=== PATIENT | female | born 1970 | race Caucasian/White ===

== ENCOUNTER 2017-12-08 22:10 | Inpatient (IN) | payer OTHER ==
[~2017-12-08] VITALS: Ht 160 cm; Wt 107.2 kg
[~2017-12-08 22:10] MED LIST: CALCIUM 500 +1 EACH PO; CYANOCOBAL1000 MCG/2 IM; FORTAMET500 M1 PO; VITAMIN D-32000 UNI2 PO
[2017-12-09 10:50] VITALS: BP 112/60
[2017-12-09 16:44] VITALS: BP 150/73
[2017-12-09 20:25] VITALS: BP 134/78
[2017-12-10 00:13] VITALS: BP 124/67
[2017-12-10 04:18] VITALS: BP 149/94
[2017-12-10 06:07] LABS: HEMATOCRIT 38.1 % (36.0-46.0); HEMOGLOBIN 12.9 G/DL (11.9-15.5); MCH 28.8 PG (29.0-34.0); MCHC 33.9 G/DL (30.0-36.0); PLATELET COUNT 211 K/uL (156-360); RBC DIS.WIDTH-CV 12.4 % (11.8-14.6); RBC DIS.WIDTH-SD 37.6 % (39-53); RED BLOOD COUNT 4.48 M/uL (3.80-5.20); WHITE BLOOD COUNT 14.3 K/uL (4.1-10.2)
[2017-12-10 06:31] LABS: CHLORIDE 101 MEQ/L (99-109); CREATININE 0.6 MG/DL (0.6-1.3); GFR ESTIMATE (CALCULATED) > 59 mL/min/; GLUCOSE 168 mg/dL (70-99); MAGNESIUM 1.5 mg/dl (1.3-2.7); PHOSPHORUS 3.4 mg/dL (2.5-4.9); POTASSIUM 4.5 MEQ/L (3.7-5.4); SODIUM 135 MEQ/L (136-147); UREA NITROGEN (BUN) 8 mg/dL (9-23)
[2017-12-10 07:50] VITALS: BP 118/63
== END 2017-12-10 10:50 | disposition home or self-care (01) | DRG 621 ==
LOC: EDBD → ENRESERV 22:10 → 2SOUTH 12-09 09:58 → ENRESERV 12-09 15:44 → 2EASTP 12-09 16:28
PROVIDERS: Surgery
PROC: 0DB64Z3 Excision of Stomach, Percutaneous Endoscopic Approach, Vertical (ICD-10-PCS; principal; 2017-12-09)
DX: E66.01 Morbid (severe) obesity due to excess calories (principal); E78.5 Hyperlipidemia, unspecified; E11.9 Type 2 diabetes mellitus without complications; Z87.891 Personal history of nicotine dependence; Z68.41 Body mass index [BMI] 40.0-44.9, adult; I25.2 Old myocardial infarction; Z79.4 Long term (current) use of insulin
CPT/HCPCS: 80048; 82948; 83735; 84100; 85027; C9113; J0131; J0330; J1100; J1170; J1580; J1644; J1650; J1815; J2270; J2405; J2710; J2765; J3010; J3480; J7050; J7120; S0020